=== PATIENT | male | born 1960 | race Caucasian/White ===

== ENCOUNTER 2024-09-19 18:48 | Emergency (ER) | payer OTHER ==
[~2024-09-19] VITALS: Ht 188 cm; Wt 102.1 kg
[2024-09-19] MEDS ORDERED: APIX5TAB PO (19:07)
[2024-09-19 20:05] LABS: BASOPHILS # (AUTO) 0.1 K/UL (0.0-0.2); BASOPHILS % (AUTO) 1.1 % (0.0-2.0); EOSINOPHILS # (AUTO) 0.3 K/uL (0.0-0.7); EOSINOPHILS % (AUTO) 4.5 % (0.0-7.0); LYMPHOCYTES # (AUTO) 1.1 K/uL (0.8-4.8); MEAN CORPUSCULAR HEMOGLOBIN 30.6 uug (23.8-33.4); MEAN CORPUSCULAR HGB CONC 36 g/dL (32.5-36.3); MEAN CORPUSCULAR VOLUME 85.4 fL (73.0-96.2); MONOCYTES # (AUTO) 0.8 K/uL (0.1-1.30); MONOCYTES % (AUTO) 11.5 % (0.0-11.0); NEUTROPHILS # (AUTO) 4.3 K/uL (1.8-8.9); NEUTROPHILS % (AUTO) 65.9 % (38.5-71.5); PLATELET COUNT (AUTO) 216 K/uL (152-348); RED BLOOD CELL COUNT(AUTO) 4.92 MIL/uL (4.06-5.63); RED CELL DISTRIBUTION WIDTH 14.8 % (12.1-16.2); WHITE BLOOD COUNT (AUTO) 6.6 K/uL (3.6-10.2)
[2024-09-19 20:10] LABS: DIFFERENTIAL COMMENT 1
[2024-09-19 20:15] LABS: AMMONIA < 10 umol/L (11-32); CARBON DIOXIDE 31 mmol/L (21-32); CHLORIDE 98 mmol/L (98-107); CREATININE 2.2 mg/dL (0.6-1.3); ETHANOL < 3 MG/DL (0-10); GLUCOSE 103 mg/dL (74-106); POTASSIUM 4.8 mmol/L (3.5-5.1); SODIUM SERUM 137 mmol/L (136-145); UREA NITROGEN, BLOOD 38 mg/dL (7-18)
[2024-09-19 20:23] LABS: CALCIUM 16.2 mg/dL (8.5-10.1)
[2024-09-19 20:24] LABS: LACTIC ACID 3.1 mmol/L (0.4-2.0)
[2024-09-19 20:27] LABS: THYROID STIMULATING HORMONE 7.062 mIU/mL (0.358-3.740)
[2024-09-19 20:29] LABS: ACETAMINOPHEN < 2.0 ug/mL (10-30); ALANINE AMINOTRANSFERASE 52 U/L (16-63); ALBUMIN 3.6 g/dL (3.4-5.0); ALKALINE PHOSPHATASE 82 U/L (50-136); ASPARTATE AMINOTRANSFERASE 55 U/L (15-37); BILIRUBIN,DIRECT 0.5 mg/dL (0.0-0.2); BILIRUBIN,TOTAL 1.6 mg/dL (0.2-1.0); TOTAL PROTEIN, SERUM 7.9 g/dL (6.4-8.2)
[2024-09-19] MEDS: ONDANSETRON 4 MG/2 ML VIAL IV ONE (20:30)
[2024-09-19] MEDS: HYDROMORPHONE 1 MG/1 ML DISP.SYRIN IV ONE (20:30)
[2024-09-19] MEDS ORDERED: ONDANSETRON 4 MG/2 ML VIAL ONE (20:32)
[2024-09-19] MEDS ORDERED: HYDROMORPHONE 1 MG/1 ML DISP.SYRIN ONE (20:33)
[2024-09-19] MEDS: IV NORMAL SALINE 1000 ML BAG IV ONE (20:45)
[2024-09-19 22:45] LABS: HIV-1 p24 ANTIGEN NON REACTIVE (NONREACTIVE); HIV-1/2 ANTIBODY NON REACTIVE (NONREACTIVE)
[2024-09-20 00:34] LABS: *BILIRUBIN,URIN NEGATIVE (NEGATIVE); *BLOOD, URINE NEGATIVE (NEGATIVE); *CLARITY,URINE CLEAR (CLEAR); *COLOR,URINE YELLOW (YELLOW); *KETONES,URINE NEGATIVE (NEGATIVE); *PROTEIN,URINE NEGATIVE (NEGATIVE); LEUKOCYTE ESTERASE ,URINE NEGATIVE (NEGATIVE); NITRITE, URINE NEGATIVE (NEGATIVE); PH,URINE 5.5 (5.0-8.0); UGLUCOSE NEGATIVE (NEGATIVE)
[2024-09-20 01:33] LABS: BACTERIA,URINE FEW /HPF (NONE SEEN); RBC,URINE 0-3 /HPF (0-3); SQUAMOUS EPITHELIAL CELL,UR FEW /HPF (NONE SEEN); WBC,URINE 0-3 /HPF (0-3)
[2024-09-20 02:31] VITALS: BP 129/65; TEMP 98; O2SAT 99
[2024-09-21 07:11] LABS: HEPATITIS B CORE AB, TOTAL Negative (Negative); HEPATITIS B SURFACE AG Negative (Negative)
== END 2024-09-20 02:32 ==
LOC: ER 18:55
DX: R41.0 Disorientation, unspecified (principal); E86.0 Dehydration; R07.9 Chest pain, unspecified; R94.31 Abnormal electrocardiogram [ECG] [EKG]; E83.52 Hypercalcemia; M79.605 Pain in left leg; M79.604 Pain in right leg; C76.2 Malignant neoplasm of abdomen; F32.A Depression, unspecified; Z79.01 Long term (current) use of anticoagulants; Z86.718 Personal history of other venous thrombosis and embolism; Z87.440 Personal history of urinary (tract) infections; Z60.2 Problems related to living alone; Z87.19 Personal history of other diseases of the digestive system
CPT/HCPCS: 80076; 80048; 82140; 82962; 87806; 84443; 85025; 85730; 87040 ×2; 36415; 71045; 70450; 93970; 93005; 99291; 96361; 96374; 96375; 83605 ×2; 87340; 80299; 80320; 80179; 86704; 81001; 87086; J2405; J1171; J7040; A4606; A4663; G0480